=== PATIENT | female | born 1940 | race Caucasian/White ===

== ENCOUNTER 2025-02-03 08:52 | Emergency (ER) | payer OTHER ==
[~2025-02-03] VITALS: Ht 154.9 cm; Wt 48.1 kg
[2025-02-03] MEDS ORDERED: methylPREDNISolone sod succ 125 MG VIAL IV ONE (09:00)
[2025-02-03] MEDS ORDERED: Albuterol Sulfate 2.5 MG/3 ML VIAL NEB ONE (09:00)
[2025-02-03] MEDS ORDERED: MAGNESIUM SULFATE 50 ML IV ONE (09:00)
[2025-02-03] MEDS ORDERED: AZITHROMYCIN 250 MG TAB PO ONE (09:00)
[2025-02-03 09:15] LABS: BASO % 0.6 % (0.0-1.0); EOS # 0.1 10*3/uL (0.0-0.4); HEMATOCRIT 39.1 % (37.0-47.0); MEAN CELL VOLUME 86.5 fl (81.0-99.0); MEAN CORPUSCULAR HGB 27.7 pg (27.0-31.0); MONO # 0.4 10*3/uL (0.1-1.0); MONO % 5.8 % (3.0-9.0); NEUT # 5.4 10*3/uL (2.3-7.9); NEUT % 76.3 % (47.0-73.0); PLATELET COUNT AUTOMATED 251 10*3/uL (130-400); RED BLOOD COUNT 4.52 10*6/uL (4.10-5.10); RED CELL DISTRI WIDTH 13.4 % (0-14.5); WHITE BLOOD COUNT 7.1 10*3/uL (4.8-10.8)
[2025-02-03 09:35] LABS: POTASSIUM 3.7 mmol/L (3.4-5.1)
[2025-02-03] MEDS ORDERED: PREDNISONE20 M1 PO (10:20)
[2025-02-03] MEDS ORDERED: AVPAK AZITHROM250 M1 PO (10:20)
== END 2025-02-03 11:50 | disposition home or self-care (01) ==
LOC: ED 08:52
PROVIDERS: Emergency Medicine
DX: J44.1 Chronic obstructive pulmonary disease with (acute) exacerbation (principal); I10 Essential (primary) hypertension; E11.9 Type 2 diabetes mellitus without complications; F17.210 Nicotine dependence, cigarettes, uncomplicated; Z88.5 Allergy status to narcotic agent

== ENCOUNTER 2025-05-24 20:17 | Emergency (ER) | payer OTHER ==
[~2025-05-24] VITALS: Ht 154.9 cm; Wt 58.5 kg
[~2025-05-24 20:17] MED LIST: AVPAK AZITHROM250 M1 PO; PREDNISONE20 M1 PO
[2025-05-24] MEDS ORDERED: Dicyclomine Hydrochloride 20 MG/10 ML OSYR PO STA (22:54)
[2025-05-24] MEDS ORDERED: MG-AL HYDROXIDE/SIMETICONE 30 ML UDC PO STA (22:54)
[2025-05-24] MEDS ORDERED: ZITHROMAX250 MG PO (23:27)
[2025-05-24] MEDS ORDERED: PREDNISONE20 M1 PO (23:27)
== END 2025-05-25 01:27 | disposition home or self-care (01) ==
LOC: ED 20:17
DX: J44.1 Chronic obstructive pulmonary disease with (acute) exacerbation (principal); Z88.5 Allergy status to narcotic agent; Z79.899 Other long term (current) drug therapy